=== PATIENT | male | born 1980 | race Caucasian/White ===

== ENCOUNTER 2023-12-12 10:49 | Emergency (ER) | payer SELFPAY | END 2023-12-12 12:27 | disposition home or self-care (01) | LOC: ERS 10:49 | DX: Z47.89 Encounter for other orthopedic aftercare (principal); E11.9 Type 2 diabetes mellitus without complications; Z79.84 Long term (current) use of oral hypoglycemic drugs; Z79.01 Long term (current) use of anticoagulants | CPT/HCPCS: 99282 ==